=== PATIENT | male | born 1980 | race Native Hawaiian/Other Pacific Islander ===

== ENCOUNTER 2019-08-20 16:14 | Emergency (ER) | payer SELFPAY ==
[~2019-08-20] VITALS: Ht 170.2 cm; Wt 90.7 kg
[2019-08-20 16:26] VITALS: BP 162/86
[2019-08-20] MEDS ORDERED: MIDAZOLAM HCL 5 MG/ML-1ML VIAL IV ONE ×3 (16:45)
[2019-08-20] MEDS ORDERED: ETOMIDATE (2MG/ML) 20ML VIAL IV ONE ×2 (16:45)
[2019-08-20] MEDS ORDERED: ONDANSETRON HCL 4 MG/2 ML VIAL IV ONE (16:45)
== END 2019-08-20 16:45 | disposition short-term general hospital (02) ==
LOC: ER 16:14
DX: S01.81XA Laceration without foreign body of other part of head, initial encounter (principal); R41.82 Altered mental status, unspecified; V28.4XXA Motorcycle driver injured in noncollision transport accident in traffic accident, initial encounter; Y93.89 Activity, other specified; Y99.8 Other external cause status; Y92.89 Other specified places as the place of occurrence of the external cause
CPT/HCPCS: 31500; 71045; 96374

== ENCOUNTER 2020-08-14 15:47 | Emergency (ER) | payer SELFPAY | END 2020-08-14 18:20 | disposition home or self-care (01) | LOC: ER 15:47 | DX: R06.02 Shortness of breath (principal); Z53.21 Procedure and treatment not carried out due to patient leaving prior to being seen by health care provider ==

== ENCOUNTER 2020-11-09 16:37 | Emergency (ER) | payer MEDICAID, OTHER ==
[~2020-11-09] VITALS: Ht 175.3 cm; Wt 95.3 kg
[2020-11-09 16:59] VITALS: BP 134/101
== END 2020-11-09 18:06 | disposition home or self-care (01) ==
LOC: ER 16:37
DX: M54.5 Low back pain (principal); V49.9XXA Car occupant (driver) (passenger) injured in unspecified traffic accident, initial encounter; Y93.89 Activity, other specified; Y92.89 Other specified places as the place of occurrence of the external cause; Y99.8 Other external cause status
CPT/HCPCS: 72070; 72100; 81002